=== PATIENT | male | born 1990 | race Caucasian/White ===

== ENCOUNTER 2018-10-27 20:33 | Emergency (ER) | payer MEDICAID ==
[~2018-10-27] VITALS: Ht 165.1 cm; Wt 89.3 kg
[~2018-10-27 20:33] MED LIST: ACET1TAB40 PO; CEPH-443 PO; IBUP-1542 PO
[2018-10-27 20:38] VITALS: Ht 165.1 cm; Wt 89.3 kg
[2018-10-27] MEDS ORDERED: ACETAMINOPHEN 325 MG TAB PO ONE (21:30)
[2018-10-27 22:22] VITALS: BP 133/79; PULSE 98; RESP 18
== END 2018-10-27 22:28 | disposition home or self-care (01) ==
LOC: FTE 20:33
DX: S61.012A Laceration without foreign body of left thumb without damage to nail, initial encounter (principal); W20.8XXA Other cause of strike by thrown, projected or falling object, initial encounter; Y92.9 Unspecified place or not applicable
CPT/HCPCS: 12002; 73130; Z7502; Z7610

== ENCOUNTER 2018-10-29 21:39 | Emergency (ER) | payer MEDICAID ==
[~2018-10-29] VITALS: Ht 165.1 cm; Wt 89.9 kg
[2018-10-29 21:46] VITALS: BP 138/77; PULSE 104; RESP 20; Ht 165.1 cm; Wt 89.9 kg
[2018-10-29] MEDS ORDERED: BACITRACIN/POLYMYXIN 28.35 GM OINT TOP ONE ×3 (23:00)
== END 2018-10-29 23:06 | disposition home or self-care (01) ==
LOC: FTE 21:39
DX: Z48.00 Encounter for change or removal of nonsurgical wound dressing (principal)
CPT/HCPCS: Z7502; Z7610; 99281